=== PATIENT | female | born 1960 | race Caucasian/White ===

== ENCOUNTER → 2016-10-01 | Outpatient (CLI) | payer OTHER ==
--- NOTE | 2016-10-01 12:17 | EST ---
DATE OF SERVICE: 10/01/2016 AGE: 56Y SEX: F HT: 65" WT: 204 lbs. Protocol Pablo: X Other: Stress Stage: 1 Dur. of Exercise: 4:45 *Heart Rate Blood Pressure *Rest: 94 Rest: 149/88 * *Max. Achieved: 138 Maximum BP: 235/97 85% PMHR: 139 100% PMHR: 163 *METS: 6.6 INDICATIONS: Dyspnea. MEDICATIONS: - STRESS DATA: Pretesting physical examination showed heart a rate of 94, pressure is 149/88 mmHg. Baseline EKG showed sinus rhythm. The patient exercised on the treadmill according to Pablo protocol for a total of 4 minutes and 45 seconds and achieved 6.6 METs. Max heart rate was 138, which is about 84% of maximum predicted heart rate. Maximum pressure was 235/97 mmHg. Clinically, the patient did not have any symptoms of chest pain or discomfort, but she developed shortness of breathThe EKG showed about 1 mm horizontal and down-sloping changes. CONCLUSION: 1. Average exercise capacity. 2. Mild EKG changes in response to exercise.
== END ==
LOC: RADNMMAIN 10:23
PROVIDERS: ATTEND Family Medicine
DX: R06.00 Dyspnea, unspecified (principal)
CPT/HCPCS: 93017

== ENCOUNTER → 2016-12-09 | Outpatient (CLI) | payer OTHER ==
[2016-12-09 15:33] LABS: Appearance,Urine Cloudy (Clear); Bacteria,Urine Rare /hpf; Bilirubin,Urine Negative (Negative); Calcium Oxalate Crystals,Urine Moderate /hpf; Glucose,Urine (UA) Negative (Negative); Ketones,Urine Trace (Negative); Leukocyte Esterase,Urine Negative (Negative); Mucus,Urine Rare /hpf; Nitrite,Urine Positive (Negative); PH, Urine 5.5 (5.0-8.0); Particle Count 46432; Protein,Urine Negative (Negative); RBC,Urine 1 /hpf (0-5); Squamous Epithelial Cell,Urine <1 /hpf (0-4); UA Billing (MACRO vs. MICRO) MICRO; Urobilinogen,Urine <2.0 mg/dL (<2.0); WBC,Urine 2 /hpf (0-5)
--- NOTE | 2016-12-10 08:00 | MM ---
Reason for exam: screening (asymptomatic). Last mammogram was performed 1 year and 6 months ago. History: Patient is postmenopausal. Physical Findings: A clinical breast exam by your physician is recommended on an annual basis and results should be correlated with mammographic findings. MG 3D Screening Mammo W/Cad Bilateral CC and MLO view(s) were taken. Prior study comparison: June 08, 2015, bilateral MG 3d screening mammo w/cad. March 03, 2013, bilateral digital screening mammo w/CAD. The breast tissue is heterogeneously dense. This may lower the sensitivity of mammography. There is no discrete abnormality. No significant changes when compared with prior studies. ASSESSMENT: Negative, BI-RAD 1 RECOMMENDATION: Routine screening mammogram of both breasts in 1 year.
== END | disposition home or self-care (01) ==
LOC: RADMAMWWP 08:21
PROVIDERS: ATTEND Obstetrics & Gynecology
DX: Z12.31 Encounter for screening mammogram for malignant neoplasm of breast (principal); R30.0 Dysuria
CPT/HCPCS: 81001; 87086; 77063; G0202; 87077; 87186

== ENCOUNTER → 2016-12-15 | Outpatient (CLI) | payer OTHER ==
--- NOTE | 2016-12-16 07:45 | US ---
EXAMINATION TYPE: US pelvic complete DATE OF EXAM: 12/15/2016 COMPARISON: NONE CLINICAL HISTORY: R10.2 Pelvic pain. LLQ pain upon pelvic exam; history of diverticulosis TECHNIQUE: Transvaginal (TV) as patient had partially full bladder Date of LMP: approximately 2010 per patient EXAM MEASUREMENTS: Uterus: 6.4 x 3.8 x 3.2 cm Endometrial Stripe: 0.45 cm Right Ovary: 2.1 x 1.2 x 1.1 cm Left Ovary: not seen TV US or TA US cm 1. Uterus: Anteverted; small Nabothian cyst in CX = 0.3 x 0.4 x 0.3cm 2. Endometrium: thickness is wnl post menopausal 3. Right Ovary: wnl 4. Left Ovary: not identified TV or TA 5. Bilateral Adnexa: wnl 6. Posterior cul-de-sac: wnl IMPRESSION: 1. Cervical nabothian cysts. Otherwise unremarkable study.
== END | disposition home or self-care (01) ==
LOC: RADUSWWP 16:02
PROVIDERS: ATTEND Obstetrics & Gynecology
DX: N88.8 Other specified noninflammatory disorders of cervix uteri (principal); R10.2 Pelvic and perineal pain
CPT/HCPCS: 76830

== ENCOUNTER → 2018-09-07 | Outpatient (CLI) | payer OTHER ==
--- NOTE | 2018-09-07 13:56 | BD ---
EXAMINATION TYPE: Axial Bone Density DATE OF EXAM: 09/07/2018 COMPARISON: 2016 CLINICAL HISTORY: disorder of bone Height: 5'6 Weight: 196 FRAX RISK QUESTIONS: Secondary Osteoporosis: RISK FACTORS HISTORY OF: History of Wrist Fracture: rt When: age 23 Postmenopausal woman: y MEDICATIONS: Additional Medications: blood pressure,metforim, cholesterol Additional History: EXAM MEASUREMENTS: Bone mineral densitometry was performed using the [employer] mobile System. Bone mineral density as measured about the Lumbar spine is: ----- L1-L4(G/cm2): 1.073 T Score Values are as follows: ----- L2: -1.6 ----- L3: -0.8 ----- L4: -0.2 ----- L1-L4: -0.9 Bone mineral density has: Increased 4.7% since study of: 06/08/2015 Bone mineral density about the R hip (g/cm2): 0.814 Bone mineral density about the L hip (g/cm2): 0.808 T Score values are as follows: -----R Neck: -1.6 -----L Neck: -1.2 -----R Total: -1.0 -----L Total: -0.5 Bone mineral density has: Increased 3.4% since study of: 06/08/2015 IMPRESSION: Osteopenia (T Score between -2.5 and -1). There is slightly increased risk of fracture and the patient may be considered for treatment. Re-Screen 2-5 years. NOTE: T-SCORE=SD OF THE YOUNG ADULT MEAN.
--- NOTE | 2018-09-08 08:52 | MM ---
Reason for exam: screening (asymptomatic). Last mammogram was performed 1 year and 9 months ago. History: Patient is postmenopausal. Family history of breast cancer in aunt at age 65. Physical Findings: A clinical breast exam by your physician is recommended on an annual basis and results should be correlated with mammographic findings. MG 3D Screening Mammo W/Cad Bilateral CC and MLO view(s) were taken. Prior study comparison: December 09, 2016, bilateral MG 3d screening mammo w/cad. June 08, 2015, bilateral MG 3d screening mammo w/cad. The breast tissue is heterogeneously dense. This may lower the sensitivity of mammography. Finding: There are typically benign vascular calcifications in the left breast. No suspicious abnormality. No significant changes in finding since December 09, 2016 and June 08, 2015. ASSESSMENT: Benign, BI-RAD 2 RECOMMENDATION: Routine screening mammogram of both breasts in 1 year.
== END | disposition home or self-care (01) ==
LOC: RADMAMWWP 12:46
PROVIDERS: ATTEND Obstetrics & Gynecology
DX: Z12.31 Encounter for screening mammogram for malignant neoplasm of breast (principal); M85.80 Other specified disorders of bone density and structure, unspecified site; N95.1 Menopausal and female climacteric states
CPT/HCPCS: 77063; 77067; 77080

== ENCOUNTER → 2020-04-16 | Outpatient (CLI) | payer OTHER ==
--- NOTE | 2020-04-17 13:30 | MM ---
Reason for exam: screening (asymptomatic). Last mammogram was performed 1 year and 7 months ago. History: Patient is postmenopausal. Family history of breast cancer in aunt at age 65. Physical Findings: A clinical breast exam by your physician is recommended on an annual basis and results should be correlated with mammographic findings. MG 3D Screening Mammo W/Cad Bilateral CC and MLO view(s) were taken. Prior study comparison: September 07, 2018, bilateral MG 3d screening mammo w/cad. December 09, 2016, bilateral MG 3d screening mammo w/cad. There are scattered fibroglandular densities. There is no discrete abnormality. No significant changes when compared with prior studies. ASSESSMENT: Negative, BI-RAD 1 RECOMMENDATION: Routine screening mammogram of both breasts in 1 year.
== END | disposition home or self-care (01) ==
LOC: RADMAMWWP 10:43
PROVIDERS: ATTEND Obstetrics & Gynecology
DX: Z12.31 Encounter for screening mammogram for malignant neoplasm of breast (principal)
CPT/HCPCS: 77063; 77067

== ENCOUNTER → 2020-05-22 | Outpatient (CLI) | payer OTHER ==
[2020-05-22 09:11] LABS: HCT 42.6 % (34.0-46.0); HGB 14.6 gm/dL (11.4-16.0); MCH 30.2 pg (25.0-35.0); MCHC 34.2 g/dL (31.0-37.0); MCV 88.3 fL (80.0-100.0); Mean Platelet Volume 7.9; Platelet Count 366 k/uL (150-450); RBC 4.82 m/uL (3.80-5.40); RDW 12.4 % (11.5-15.5); WBC 7.9 k/uL (3.8-10.6)
[2020-05-22 09:15] LABS: Appearance,Urine Clear (Clear); Bacteria,Urine Occasional /hpf; Bilirubin,Urine Negative (Negative); Blood,Urine Negative (Negative); Color,Urine Light Yellow; Glucose,Urine (UA) Negative (Negative); Ketones,Urine Negative (Negative); Leukocyte Esterase,Urine Small (Negative); Nitrite,Urine Negative (Negative); Protein,Urine Negative (Negative); Specific Gravity,Urine 1.007 (1.001-1.035); Squamous Epithelial Cell,Urine <1 /hpf (0-4); Urobilinogen,Urine <2.0 mg/dL (<2.0); WBC,Urine 8 /hpf (0-5)
[2020-05-22 09:24] LABS: Albumin 4.9 g/dL (3.5-5.0); Calcium 10.5 mg/dL (8.4-10.2); INR 0.9 (<1.2); Partial Thromboplastin Time 22.2 sec (22.0-30.0); Potassium 4.4 mmol/L (3.5-5.1); Prothrombin Time 10.2 sec (9.0-12.0)
== END | disposition home or self-care (01) ==
LOC: LABPAT 08:38
PROVIDERS: ATTEND Orthopaedic Surgery
DX: Z01.818 Encounter for other preprocedural examination (principal); Z01.812 Encounter for preprocedural laboratory examination
CPT/HCPCS: 36415; 80053; 81001; 85027; 85610; 85730; 87070

== ENCOUNTER 2020-05-29 07:47 | Day surgery (SDC) | payer OTHER ==
[2020-05-24 08:25] VITALS: BMI 30.4
[~2020-05-29 07:47] MED LIST: ACETAMINOPHEN TAB 500 MG TAB PO PRN; DEXAMETHASONE SOD PHOSPHATE 4 MG/ML 1 ML VIAL IV ONE; GABAPENTIN 300 MG CAP PO PRN; HYDROmorphone 0.5 MG/0.5 ML SYRINGE IVP PRN; MELOXICAM 7.5 MG TAB PO PRN; ONDANSETRON 4 MG/2 ML VIAL IVP ONE; ROPIVACAINE 246.25 MG, EPINEPHrine 0.5 MG, KETOROLAC 30 MG, cloNIDine HCL/PF 80 MCG, WA... MISCELLANE PRN; TRANEXAMIC ACID 1,000 MG in SODIUM CHLORIDE 0.9% 100 ML IVPB PRN
[2020-05-29 08:36] LABS: Glucose,Whole Blood 170 mg/dL (75-99)
[2020-05-29] MEDS: LACTATED RINGERS 1,000 ML IV SCH (08:39)
[2020-05-29] MEDS ORDERED: LIDOCAINE 1% (10MG/ML) FOR IV START INTRADERMA ONE (08:40)
[2020-05-29] MEDS ORDERED: fentaNYL (PF) 50 MCG/ML 2 ML AMP ONE (08:49)
[2020-05-29] MEDS ORDERED: PHENYLEPHRINE 10 MG/ML VIAL ONE (08:49)
[2020-05-29] MEDS ORDERED: SODIUM CHLORIDE 0.9% IRRIG 1,000 ML BTL IRRIGATION ONE (08:49)
[2020-05-29] MEDS ORDERED: PROPOFOL 10 MG/ML 20 ML VIAL IV ONE (08:49)
[2020-05-29] MEDS ORDERED: TRANEXAMIC ACID 1,000 MG/10 ML VIAL ONE (08:49)
[2020-05-29] MEDS ORDERED: MIDAZOLAM 2 MG/2 ML VIAL ONE (08:49)
[2020-05-29] MEDS ORDERED: SODIUM CHLORIDE 0.9% 100 ML BAG ONE (08:49)
[2020-05-29] MEDS ORDERED: HEPARIN SODIUM,PORCINE 10,000 UNIT/ML 1 ML VIAL ONE (08:49)
[2020-05-29] MEDS ORDERED: ceFAZolin 3,000 MG in SODIUM CHLORIDE 0.9% IRRIGATIO 3,000 ML IRRIGATION ONE (08:53)
--- NOTE | 2020-05-29 10:07 | P.OP ---
Date of Procedure: 05/29/20 Preoperative Diagnosis: Severe osteoarthritis of the left hip Postoperative Diagnosis: Severe osteoarthritis of the left hip Procedure(s) Performed: Left total hip arthroplasty with a direct anterior approach Implants: [employer] Polarstem standard size 6 [employer] R3, 3 hole hemispherical acetabular shell, 48 mm [employer] Reflection 6.5 mm cancellus screw, 20 mm 2 [employer] R3, XLPE 20 acetabular liner [employer] Oxinium femoral head 32 m, -3 All components were press-fit. The articulation is Oxinium on polyethylene. Anesthesia: spinal Surgeon: Mikal Benton Boring Machine Operator #1: Jenise Olmedo Estimated Blood Loss (ml): 100 Pathology: other (Femoral head) Condition: stable Disposition: PACU Indications for Procedure: After failure of conservative treatment we discussed the surgical and nonsurgical treatment options at length. Patient wishes to proceed with a total hip arthroplasty with a direct anterior approach. Complications specific to this procedure were discussed at length, including but not limited to infection, leg length discrepancy, dislocation, nerve injury, and fracture. Covid-19 was also discussed at length with the patient, and they are aware of the current dionisio icies and procedures. The patient was given the option of delaying surgery, but they elect to proceed knowing these risks. Patient is aware of all these complications and informed consent was obtained Operative Findings: The operative findings are consistent with severe osteoarthritis of the left hip Description of Procedure: Patient was seen and evaluated in the preoperative area and the consent was reviewed. The operative site was marked with a skin marker. The patient was then brought to the operating room and given preoperative antibiotics intravenously. 1 g of Tranexamic acid was also given intravenously. A spinal anesthetic was administered by the anesthesia department. The patient was then placed on the Proctor table with the bony prominences well-padded. The hip area was then prepped with a ChloraPrep solution and draped in the usual sterile fashion. A universal timeout was then performed, which confirmed the patient's name, surgical site, ALLERGIES, and procedure being performed on the consent. Next the incision site was located at flexion crease of the left hip. The skin and subcutaneous tissues were sharply incised. Incision was carefully dissected down to the fascia overlying the tensor fascia naldo muscle. This fascia was then incised in line with the incision. Care was taken to stay laterally in order to avoid injuring the lateral femoral cutaneous nerve. Next, using blunt finger dissection, the tensor fascia naldo muscle was dissected off its investing fascia. The muscle was then carefully retracted laterally with a cobra retractor over the lateral neck of the femur. Next, the circumflex vessels were identified and cauterized using the AquaMantis device. The anterior hip capsule was then exposed. The capsule was then opened and an inverted T fashion. Cobra retractors were then placed intracapsularly. The retractors were maintained intracapsular throughout the procedure. The proximal femur was then visualized. A small amount of traction was placed on the leg. The femoral neck was then osteotomized appropriate level above the lesser trochanter. A small wedge of bone was then removed from the remaining femoral head. Next, using a corkscrew the femoral head was removed from the acetabulum. On gross visual inspection, the femoral head had complete loss of articular car tilage and multiple periarticular osteophytes. The femoral head was then measured. Attention was then turned to the acetabulum. The acetabulum was exposed and any remaining labrum was excised. Sequential reaming of the acetabulum was performed using fluoroscopic guidance until there was a good bed of bleeding cancellus bone. When the appropriate size was reached, a trial was then placed. The position and fit of the trial was checked with fluoroscopy. The trial was then removed. Then, using fluoroscopic guidance, the final implant was impacted at 20 of anteversion and 40 of abduction, and fully seated in the acetabulum. 2 screws were then placed in the acetabulum. Again fluoroscopy was used to check position of the screws. Next, the liner was then impacted, with a 20 elevated liner located in the anterior superior quadrant. Component locking was confirmed. Attention was then directed to the femur. With the aid of the Proctor table, the femur was externally rotated to approximately 130, extended, and adducted under the opposite leg. A side hook was then placed under the proximal femur, and the side hook elevator was used to elevate the proximal femur while releasing the capsule. Retractors were then placed. A capsular release was performed, as well as a release of the conjoined tendon, which afforded excellent visualization of the proximal femur. Next, a box osteotome was used to lateralize the proximal femur. A hand crocheter was then used to locate the femoral canal. Sequential broaching was then performed with appropriate size which afforded excellent fixation in the proximal femur. A trial was then placed with appropriate head and neck, and the hip was gently reduced with the aid of the Proctor table. Fluoroscopy was then used to check position of the components, as well as to ensure equal leg lengths. The hip was then gently dislocated and the trials were then removed. Final implants were then impacted and the hip was again reduced. Final fluoroscopic x-rays confirmed that the components were in anatomic position, as well as equal leg lengths. The hip was also taken through range of motion, and found to be stable. The hip was then copiously irrigated with antibiotic solution with pulsatile lavage. The hip was then irrigated with Irrisept solution. The soft tissues were then injected with a ropivacaine solution, which consisted of 246.25 mg of ropivacaine, 0.5 mg of epinephrine, 30 mg of Toradol, 80 g of clonidine, and 48.45 mL of sterile water, for a total of 100 mL of fluid injected. A second dose of 1 g of Tranexamic acid was also given intravenously. Any blood collected by Cell Saver was then returned to the patient at this time. The fascia was then closed with 2-0 strata fix suture. The subcutaneous tissue was closed with 3-0 Vicryl. The subcuticular tissue was closed with 3-0 strata fix suture. The skin was then closed with Exofin skin glue. After the glue and dried, and Optifoam silver impregnated dressing was applied. The patient was then transferred to the recovery room in stable condition. The investment sales assistant GEETA Martinez was required due to the complexity of surgery, and the need for skilled surgical aides teacher for positioning, draping, exposure, retraction, and closure of the wound.
[2020-05-29] MEDS ORDERED: LACTATED RINGERS 1,000 ML IV ONE (10:08)
--- NOTE | 2020-05-29 10:31 | FL ---
Fluoroscopy HISTORY: Left total hip arthroplasty 55 seconds fluoroscopy time supplied to the referring clinician. 2 intraoperative C-arm images docum ent the procedure. See dictated report from orthopedic surgery.
[2020-05-29] MEDS ORDERED: HYDROcodone/APAP 5-325MG 1 EACH TAB PO PRN (10:33)
[2020-05-29] MEDS ORDERED: MAGNESIUM HYDROXIDE 2,400 MG/10 ML CUP PO PRN (10:33)
[2020-05-29] MEDS ORDERED: NALOXONE 0.4 MG/ML 1 ML VIAL IV PRN (10:33)
[2020-05-29] MEDS ORDERED: HYDROmorphone 0.2 MG/1 ML SYRINGE IVP PRN (10:33)
[2020-05-29] MEDS ORDERED: HYDROmorphone 0.5 MG/0.5 ML SYRINGE IVP PRN (10:33)
[2020-05-29] MEDS ORDERED: hydrOXYzine pamoate 25 MG CAP PO PRN (10:33)
[2020-05-29] MEDS ORDERED: HYDROmorphone 1 MG/ML 1 ML SYRINGE IVP PRN (10:33)
[2020-05-29] MEDS ORDERED: ONDANSETRON 4 MG/2 ML VIAL IVP PRN (10:33)
--- NOTE | 2020-05-29 10:33 | XR ---
Limited left hip HISTORY: Status post left hip arthroplasty 2 intraoperative C-arm images document the procedure.
[2020-05-29] MEDS ORDERED: diphenhydrAMINE 50 MG/ML 1 ML VIAL IVP ONE (10:59)
--- NOTE | 2020-05-29 11:01 | XR ---
Limited left hip HISTORY: Status post left hip arthroplasty Single frontal view of the left hip Patient is status post left hip arthroplasty. There is anatomic alignment. There is lucency in the so ft tissues. IMPRESSION: Orthopedic follow-up.
[2020-05-29 11:30] LABS: Glucose,Whole Blood 146 mg/dL (75-99)
[2020-05-29] MEDS: SODIUM CHLORIDE 0.9% 1,000 ML IV SCH (13:03)
--- NOTE | 2020-05-29 14:46 | P.CONS ---
History of Present Illness - Reason for Consult Management of diabetes mellitus - History of Present Illness Patient is a very pleasant 59-year-old female admitted for left hip arthroplasty and underwent surgery patient denied any pain at this time patient did not pass gas. Patient did not move her bowel yet patient doesn't have any drains or catheters at this time. Patient doesn't have full catheter. Patient denied any fever chills cough dysuria. Review of Systems REVIEW OF SYSTEMS: CONSTITUTIONAL: No fever, no malaise, no fatigue. HEENT: No recent visual problems or hearing problems. Denied any sore throat. CARDIOVASCULAR: No chest pain, orthopnea, PND, no palpitations, no syncope. PULMONARY: No shortness of breath, no cough, no hemoptysis. GASTROINTESTINAL: No diarrhea, no nausea, no vomiting, no abdominal pain. NEUROLOGICAL: No headaches, no weakness, no numbness. HEMATOLOGICAL: Denies any bleeding or petechiae. GENITOURINARY: Denies any burning micturition, frequency, or urgency. MUSCULOSKELETAL/RHEUMATOLOGICAL: Denies any joint pain, swelling, or any muscle pain. ENDOCRINE: Denies any polyuria or polydipsia. The rest of the 14-point review of systems is negative. Past Medical History Past Medical History: Diabetes Mellitus, GERD/Reflux, Hyperlipidemia, Hypertension, Osteoarthritis (OA) Additional Past Medical History / Comment(s): FATTY LIVER. VARICOSE VEINS. DIVERTICULOSIS, History of Any Multi-Drug Resistant Organisms: None Reported Past Surgical History: Cholecystectomy, Hernia Repair Past Anesthesia/Blood Transfusion Reactions: Motion Sickness Additional Past Anesthesia/Blood Transfusion Reaction / Comm: YEARS AGO, PROB AWAKENING AFTER COMPLICATION W/ CHILDBIRTH. Past Psychological History: No Psychological Hx Reported Smoking Status: Never smoker Past Alcohol Use History: Rare Past Drug Use History: None Reported - Past Family History Mother Family Medical History: Cancer Additional Family Medical History / Comment(s): mult myeloma Medications and Allergies Home Medications Medication Instructions Recorded Confirmed Type Multivitamins, Thera [Theragran] 1 tab PO DAILY 05/08/15 05/29/20 History Naproxen Sodium [Aleve] 440 mg PO DAILY 05/08/15 05/29/20 History metFORMIN HCL 1,000 mg PO BID 05/08/15 05/29/20 History Aspirin 81 mg PO DAILY 11/22/15 05/29/20 History Acetaminophen [Tylenol Extra 1,000 mg PO DIRECTED PRN 05/24/20 05/29/20 History Strength] Acetaminophen/Diphenhydramine 1 tab PO HS 05/24/20 05/29/20 History [Tylenol PM 500-25mg] Calcium Carbonate/Vitamin D3 1 each PO DAILY 05/24/20 05/29/20 History [Caltrate 600 Plus D3 20 Mcg (800 Iu)] Carvedilol [Coreg] 12.5 mg PO BID 05/24/20 05/29/20 History Cholecalciferol (Vitamin D3) 125 mcg PO DAILY 05/24/20 05/29/20 History [Vitamin D3 (5000 Iu)] Glucosamine/Chondr Junior A Sod [Osteo 1 each PO DAILY 05/24/20 05/29/20 History Bi-Flex Caplet] L.acidoph,Paracasei, B.lactis 1 each PO DAILY 05/24/20 05/29/20 History [Probiotic] [place]-3 Fatty Acids/Fish Oil [Fish 1 each PO DAILY 05/24/20 05/29/20 History Oil 1,000 mg Softgel] Omeprazole 40 mg PO DAILY 05/24/20 05/29/20 History Simvastatin [Zocor] 10 mg PO HS 05/24/20 05/29/20 History Valsartan/Hydrochlorothiazide 1 each PO QAM 05/24/20 05/29/20 History [Valsartan-Hctz 160-12.5 mg Tab] Allergies Allergy/AdvReac Type Severity Reaction Status Date / Time No Known Allergies Allergy Verified 05/29/20 08:17 Physical Exam Vitals: Vital Signs Temp Pulse Resp BP Pulse Ox 05/29/20 12:30 97.7 F 78 16 127/76 94 L 05/29/20 12:00 67 14 99/65 100 05/29/20 11:45 69 14 100/63 98 05/29/20 11:30 74 14 100/64 97 05/29/20 11:27 71 18 107/64 98 05/29/20 11:15 71 14 85/57 96 05/29/20 11:00 69 16 97/62 96 05/29/20 10:45 67 14 100/59 99 05/29/20 10:30 65 14 93/55 95 05/29/20 10:23 98.3 F 72 20 86/68 97 05/29/20 08:22 97.2 F L 86 16 132/75 95 Intake and Output 05/28/20 05/29/20 05/29/20 22:59 06:59 14:59 Intake Total 1387 Output Total 100 Balance 1287 Intake: IV 1151 Oral 236 Output: Estimated Blood Loss 100 Other: Weight 84 kg PHYSICAL EXAMINATION: GENERAL: The patient is alert and oriented x3, not in any acute distress. Well developed, well nourished. HEENT: Pupils are round and equally reacting to light. EOMI. No scleral icterus. No conjunctival pallor. Normocephalic, atraumatic. No pharyngeal erythema. No thyromegaly. CARDIOVASCULAR: S1 and S2 present. No murmurs, rubs, or gallops. PULMONARY: Chest is clear to auscultation, no wheezing or crackles. ABDOMEN: Soft, nontender, nondistended, normoactive bowel sounds. No palpable organomegaly. MUSCULOSKELETAL: No joint swelling or deformity. EXTREMITIES: No cyanosis, clubbing, or pedal edema. NEUROLOGICAL: Gross neurological examination did not reveal any focal deficits. SKIN: No rashes. Results Labs: Abnormal Lab Results - Last 24 Hours (Table) 05/29/20 05/29/20 Range/Units 08:34 11:28 POC Glucose (mg/dL) 170 H 146 H (75-99) mg/dL Assessment and Plan Plan: -Type 2 diabetes mellitus: Patient will be resumed on metformin and will be started on sliding scale insulin -Hypertension patient on beta jan which will be resumed but patient will be monitored for any perioperative hypotension which will be treated with IV fluids. -Left hip arthroplasty: Patient is on DVT prophylaxis with 325 mg twice a day of aspirin -Hyperlipidemia patient was started on a statin -Gastroesophageal reflux disease: On Prilosec which was resumed
[2020-05-29 16:51] LABS: Glucose,Whole Blood 237 mg/dL (75-99)
[2020-05-29] MEDS: carvediloL 12.5 MG TAB PO SCH (17:21)
[2020-05-29] MEDS: INSULIN ASPART (NovoLOG) 100 UNIT/ML VIAL SQ SCH ×2 (17:22→19:51)
[2020-05-29 19:46] LABS: Glucose,Whole Blood 288 mg/dL (75-99)
[2020-05-29] MEDS: HYDROcodone/APAP 5-325MG 1 EACH TAB PO PRN (19:50)
[2020-05-29] MEDS: ASPIRIN 325 MG TAB PO SCH (19:50)
[2020-05-29] MEDS: metFORMIN 500 MG TAB PO SCH (19:50)
[2020-05-29] MEDS ORDERED: ATORVASTATIN 10 MG TAB PO SCH (21:00)
[2020-05-29] MEDS ORDERED: SENNOSIDES-DOCUSATE SODIUM 1 EACH TAB PO SCH (21:00)
[2020-05-30] MEDS: HYDROcodone/APAP 5-325MG 1 EACH TAB PO PRN ×2 (02:13→08:06)
[2020-05-30] MEDS: SODIUM CHLORIDE 0.9% 1,000 ML IV SCH (02:37)
[2020-05-30] MEDS: LACTATED RINGERS 1,000 ML IV SCH (05:22)
[2020-05-30 07:10] LABS: Glucose,Whole Blood 109 mg/dL (75-99)
[2020-05-30] MEDS: INSULIN ASPART (NovoLOG) 100 UNIT/ML VIAL SQ SCH ×2 (07:48→12:37)
[2020-05-30] MEDS: ASPIRIN 325 MG TAB PO SCH (08:06)
[2020-05-30] MEDS: carvediloL 12.5 MG TAB PO SCH (08:06)
[2020-05-30] MEDS: metFORMIN 500 MG TAB PO SCH (08:06)
[2020-05-30 08:16] VITALS: TEMP 98.4
[2020-05-30] MEDS ORDERED: HYDROcodone/APAP 7.5-325MG 1 EACH TAB PO PRN ×2 (08:23)
--- NOTE | 2020-05-30 08:27 | P.DS ---
Providers Expected date of discharge: 05/30/20 Attending physician: Mikal Benton Consults: 05/29/20 10:33 Consult Physician Routine Consulting Provider: Melody Burroughs Consult Reason/Comments: medical management Do you want consulting provider notified?: Yes Primary care physician: Odilia Cardona - Discharge Diagnosis(es) (1) Osteoarthritis of left hip Current Visit: Yes Status: Acute (2) S/P total hip arthroplasty Current Visit: Yes Status: Acute Hospital Course: This is a 59-year-old female with known history of degenerative arthritis of the left hip. The patient presented for evaluation as an outpatient. After discussion and consideration patient elects to proceed with total hip arthroplasty. The patient is seen preoperatively by Dr. Benton and medically cleared for surgery by their primary care physician. Patient is admitted to [facility] on 05/29/2020 for total hip arthroplasty. The procedure is performed without complication or sequelae. The patient is doing well postoperatively. Labs and vital signs are stable on day of discharge. On day of discharge patient's hip incision is healing well. There is minimal erythema. There is no drainage noted at this time. There is minimal soft tiss ue swelling to the hip and thigh. Patient has full foot and ankle motion without difficulty or pain. Calf is soft and nontender to palpation. Neurovascular status to the left lower extremity is intact. Patient is discharged home in good condition. Opioid start talking form is reviewed and signed. Please see med rec for accurate list of home medications. Plan - Discharge Summary Discharge Rx Participant: Yes New Discharge Prescriptions: New Aspirin 325 mg PO BID #60 tab HYDROcodone/APAP 7.5-325MG [[place] 7.5-325] 1 - 2 tab PO Q6H PRN #32 tab PRN Reason: Pain Sennosides [Senokot] 2 tab PO DAILY PRN #60 tablet PRN Reason: Constipation No Action metFORMIN HCL 1,000 mg PO BID Naproxen Sodium [Aleve] 440 mg PO DAILY Multivitamins, Thera [Theragran] 1 tab PO DAILY Aspirin 81 mg PO DAILY Valsartan/Hydrochlorothiazide [Valsartan-Hctz 160-12.5 mg Tab] 1 each PO QAM Cholecalciferol (Vitamin D3) [Vitamin D3 (5000 Iu)] 125 mcg PO DAILY Carvedilol [Coreg] 12.5 mg PO BID Simvastatin [Zocor] 10 mg PO HS Calcium Carbonate/Vitamin D3 [Caltrate 600 Plus D3 20 Mcg (800 Iu)] 1 each PO DAILY [place]-3 Fatty Acids/Fish Oil [Fish Oil 1,000 mg Softgel] 1 each PO DAILY Glucosamine/Chondr Junior A Sod [Osteo Bi-Flex Caplet] 1 each PO DAILY L.acidoph,Paracasei, B.lactis [Probiotic] 1 each PO DAILY Omeprazole 40 mg PO DAILY Acetaminophen/Diphenhydramine [Tylenol PM 500-25mg] 1 tab PO HS Acetaminophen [Tylenol Extra Strength] 1,000 mg PO DIRECTED PRN PRN Reason: Pain Discharge Medication List Multivitamins, Thera [Theragran] 1 tab PO DAILY 05/08/15 [History] Naproxen Sodium [Aleve] 440 mg PO DAILY 05/08/15 [History] metFORMIN HCL 1,000 mg PO BID 05/08/15 [History] Aspirin 81 mg PO DAILY 11/22/15 [History] Acetaminophen [Tylenol Extra Strength] 1,000 mg PO DIRECTED PRN 05/24/20 [History] Acetaminophen/Diphenhydramine [Tylenol PM 500-25mg] 1 tab PO HS 05/24/20 [History] Calcium Carbonate/Vitamin D3 [Caltrate 600 Plus D3 20 Mcg (800 Iu)] 1 each PO DAILY 05/24/20 [History] Carvedilol [Coreg] 12.5 mg PO BID 05/24/20 [History] Cholecalciferol (Vitamin D3) [Vitamin D3 (5000 Iu)] 125 mcg PO DAILY 05/24/20 [History] Glucosamine/Chondr Junior A Sod [Osteo Bi-Flex Caplet] 1 each PO DAILY 05/24/20 [History] L.acidoph,Paracasei, B.lactis [Probiotic] 1 each PO DAILY 05/24/20 [History] [place]-3 Fatty Acids/Fish Oil [Fish Oil 1,000 mg Softgel] 1 each PO DAILY 05/24/20 [History] Omeprazole 40 mg PO DAILY 05/24/20 [History] Simvastatin [Zocor] 10 mg PO HS 05/24/20 [History] Valsartan/Hydrochlorothiazide [Valsartan-Hctz 160-12.5 mg Tab] 1 each PO QAM 05/24/20 [History] Aspirin 325 mg PO BID #60 tab 05/30/20 [Rx] HYDROcodone/APAP 7.5-325MG [[place] 7.5-325] 1 - 2 tab PO Q6H PRN #32 tab 05/30/20 [Rx] Sennosides [Senokot] 2 tab PO DAILY PRN #60 tablet 05/30/20 [Rx] Follow up Appointment(s)/Referral(s): Mikal Benton DO [Doctor of Osteopathic Medicine] - 2 Weeks Activity/Diet/Wound Care/Special Instructions: Weightbearing as tolerated with walker. Leave dressing intact. Dressing may be removed by home care nurse or by patient in 10 days. May shower with dressing on. Please take aspirin 325mg twice daily for 30 days to prevent blood clots. Recommend use of compression stockings daily until follow up to help prevent swelling and blood clots. May remove at night before sleeping. Please follow-up with [facility] in 2 weeks and call with any questions or concerns, . Discharge Disposition: HOME WITH HOME HEALTH SERVICES
[2020-05-30] MEDS ORDERED: PANTOPRAZOLE 40 MG TABLET PO SCH (09:00)
[2020-05-30] MEDS ORDERED: MELOXICAM 7.5 MG TAB PO SCH (09:00)
[2020-05-30 09:10] LABS: Basophils # (A) 0.02 X 10*3/uL (0.00-0.10); Basophils % (A) 0.1 %; Eosinophils # (A) 0.03 X 10*3/uL (0.04-0.35); Eosinophils % (A) 0.2 %; HCT 35.8 % (37.2-46.3); Lymphocytes # (A) 1.85 X 10*3/uL (0.90-5.00); Lymphocytes % (A) 12.3 %; MCH 30.1 pg (27.0-32.0); MCHC 33.5 g/dL (32.0-37.0); MCV 89.7 fL (80.0-97.0); Mean Platelet Volume 11.4 fL (9.5-12.2); Monocytes # (A) 1.44 X 10*3/uL (0.20-1.00); Monocytes % (A) 9.5 %; Neutrophils # (A) 11.68 X 10*3/uL (1.80-7.70); Neutrophils % (A) 77.5 %; Platelet Count 317 X 10*3/uL (140-440); RBC 3.99 X 10*6/uL (4.10-5.20); RDW 11.9 % (11.5-14.5); WBC 15.08 X 10*3/uL (4.50-10.00)
[2020-05-30 11:54] LABS: Glucose,Whole Blood 111 mg/dL (75-99)
[2020-05-30 11:55] VITALS: BP 118/71; PULSE 62; RESP 18
--- NOTE | 2020-05-30 15:00 | P.PN ---
Subjective Progress Note Date: 05/30/20 - Reason for Consult Management of diabetes mellitus - History of Present Illness Patient is a very pleasant 59-year-old female admitted for left hip arthroplasty and underwent surgery patient denied any pain at this time patient did not pass gas. Patient did not move her bowel yet patient doesn't have any drains or catheters at this time. Patient doesn't have Britton catheter. Patient denied any fever chills cough dysuria. 05/30/2020 Patient was Seen and evaluated in follow-up with no acute overnight issues. Patient is status post left hip arthroplasty. On exam patient is up and walking to the bathroom with a walker and will be continuing with home care in the outpatient setting. Case management working on discharge planning. Patient to resume home medications upon discharge. Patient to continue monitoring blood sugar in keeping a diary for primary care follow-up. Hemoglobin A1c is currently pending and instructed the patient to review the [facility] portal and follow-up with primary care provider on these lab values. Patient had CBC done and elevated white blood count is noted at 15.08 which is likely reactive due to recent surgery as patient is afebrile, denies any shortness of breath or cough, denies any dysuria or retention, and states her presurgical screening she was told the white blood count was between 11 and 12. Patient instructed to follow- up with primary care provider and repeat labs in one week to monitor. Patient is passing gas and states she had a bowel movement this morning. Review of systems: Constitutional: No reports of fatigue, fever, or chills Cardiovascular: No reports of chest pain or palpitations Respiratory: No reports of shortness of breath or cough GI: No reports of nausea, vomiting, or diarrhea : No reports of dysuria or retention Neurovascular: No reports of weakness or numbness All medications have been reviewed Objective - Vital Signs Vital signs: Vital Signs Temp 98.4 F 05/30/20 06:57 Pulse 68 05/30/20 06:57 Resp 17 05/30/20 06:57 BP 124/77 05/30/20 06:57 Pulse Ox 94 L 05/30/20 06:57 Intake & Output 05/29/20 05/30/20 05/30/20 18:59 06:59 18:59 Intake Total 1807 Output Total 700 Balance 1107 Weight 84 kg Intake: IV 1571 Sodium Chloride 0.9% 1, 420 000 ml @ 70 mls/hr IV . [id number] [facility] Rx#:[id number] Oral 236 Output: Urine 600 Estimated Blood Loss 100 Other: Voiding Method Toilet # Voids 2 - Exam GENERAL: The patient is alert and oriented x3, not in any acute distress. Well developed, well nourished. Currently sitting up in the chair after walking with a walker HEENT: Pupils are round and equally reacting to light. EOMI. No scleral icterus. No conjunctival pallor. Normocephalic, atraumatic. No pharyngeal erythema. No thyromegaly. CARDIOVASCULAR: S1 and S2 present. No murmurs, rubs, or gallops. PULMONARY: Chest is clear to auscultation, no wheezing or crackles. ABDOMEN: Soft, nontender, nondistended, normoactive bowel sounds. No palpable organomegaly. MUSCULOSKELETAL: No joint swelling or deformity. EXTREMITIES: No cyanosis, clubbing, or pedal edema. Surgical hip recent surgery site dressing in the left groin is dry and intact with some slight bruising noted along with swelling has improved. NEUROLOGICAL: Gross neurological examination did not reveal any focal deficits. SKIN: No rashes. - Labs CBC & Chem 7: 05/30/20 06:16 Labs: Abnormal Lab Results - Last 24 Hours (Table) 05/29/20 05/29/20 05/29/20 Range/Units 11:28 16:48 19:45 WBC (4.50-10.00) X 10*3/uL RBC (4.10-5.20) X 10*6/uL Hct (37.2-46.3) % Immature Gran # (0.00-0.04) X 10*3/uL Neutrophils # (1.80-7.70) X 10*3/uL Monocytes # (0.20-1.00) X 10*3/uL Eosinophils # (0.04-0.35) X 10*3/uL POC Glucose (mg/dL) 146 H 237 H 288 H (75-99) mg/dL 05/30/20 05/30/20 Range/Units 06:16 06:59 WBC 15.08 H (4.50-10.00) X 10*3/uL RBC 3.99 L (4.10-5.20) X 10*6/uL Hct 35.8 L (37.2-46.3) % Immature Gran # 0.06 H (0.00-0.04) X 10*3/uL Neutrophils # 11.68 H (1.80-7.70) X 10*3/uL Monocytes # 1.44 H (0.20-1.00) X 10*3/uL Eosinophils # 0.03 L (0.04-0.35) X 10*3/uL POC Glucose (mg/dL) 109 H (75-99) mg/dL Assessment and Plan Assessment: -Type 2 diabetes mellitus: Patient will be resumed on metformin and will resume home medication continue with Accu-Cheks -Mild leukocytosis most likely reactive with no signs of infection, patient is afebrile, no chest pain or shortness of breath, no cough, denies any dysuria or frequency with urination -Hypertension patient on beta jan which will be resumed, patient instructed to resume home medications tomorrow -Left hip arthroplasty: Patient is on DVT prophylaxis with 325 mg twice a day of aspirin -Hyperlipidemia patient was started on a statin -Gastroesophageal reflux disease: On Prilosec which was resumed Plan: Continue with current medications and resume home medications. Continue to mon itor blood sugars before meals and at bedtime. Patient had a slightly elevated white blood count which is likely reactive status post surgery and instructed the patient to follow-up with primary care provider this week for repeat labs to monitor white blood count. Patient is afebrile with no chest pain no shortness of breath no cough noted. Patient denies any urinary retention, dysuria, or frequency with urination. Will continue to follow along with orthopedic surgery during hospitalization. Case management following and making arrangements for home care in the outpatient setting. She is scheduled to be discharged today.
[2020-05-30 17:05] LABS: Hemoglobin A1C 6.2 % (4.0-6.0)
== END 2020-05-30 13:28 | disposition home health service (06) ==
LOC: OR 07:47 → 4SSUR 12:14 → OR 05-30 13:18
PROVIDERS: ATTEND Orthopaedic Surgery
DX: M16.12 Unilateral primary osteoarthritis, left hip (principal); M25.752 Osteophyte, left hip; D72.829 Elevated white blood cell count, unspecified; I10 Essential (primary) hypertension; E11.9 Type 2 diabetes mellitus without complications; K21.9 Gastro-esophageal reflux disease without esophagitis; E78.5 Hyperlipidemia, unspecified; K76.0 Fatty (change of) liver, not elsewhere classified; I83.90 Asymptomatic varicose veins of unspecified lower extremity; K57.90 Diverticulosis of intestine, part unspecified, without perforation or abscess without bleeding; Z79.1 Long term (current) use of non-steroidal anti-inflammatories (NSAID); Z79.899 Other long term (current) drug therapy; Z79.82 Long term (current) use of aspirin; Z79.84 Long term (current) use of oral hypoglycemic drugs; Z97.3 Presence of spectacles and contact lenses; Z90.49 Acquired absence of other specified parts of digestive tract; Z98.890 Other specified postprocedural states; Z87.898 Personal history of other specified conditions; Z91.89 Other specified personal risk factors, not elsewhere classified; Z82.49 Family history of ischemic heart disease and other diseases of the circulatory system; Z80.7 Family history of other malignant neoplasms of lymphoid, hematopoietic and related tissues
CPT/HCPCS: 27130; 97116; 97110; 97161; 97535; 97165; 86891; 85025; 88300; 83036; 73501; C1776; J0171; J1200; J1100; J0690 ×3; J2405; J1885; J2795; J0735; J1170; 86850; 86900; 86901

== ENCOUNTER → 2021-04-29 | Outpatient (CLI) | payer OTHER, BC ==
--- NOTE | 2021-04-29 09:50 | MM ---
Reason for exam: screening (asymptomatic). Last mammogram was performed 1 year ago. History: Patient is postmenopausal. Family history of breast cancer in aunt at age 65. Physical Findings: A clinical breast exam by your physician is recommended on an annual basis and results should be correlated with mammographic findings. MG 3D Screening Mammo W/Cad Bilateral CC and MLO view(s) were taken. Prior study comparison: April 16, 2020, bilateral MG 3d screening mammo w/cad. September 07, 2018, bilateral MG 3d screening mammo w/cad. The breast tissue is heterogeneously dense. This may lower the sensitivity of mammography. There is no discrete abnormality. ASSESSMENT: Benign, BI-RAD 2 RECOMMENDATION: Routine screening mammogram of both breasts in 1 year.
== END | disposition home or self-care (01) ==
LOC: RADMAMWWP 07:36
PROVIDERS: ATTEND Obstetrics & Gynecology
DX: Z12.31 Encounter for screening mammogram for malignant neoplasm of breast (principal); Z80.3 Family history of malignant neoplasm of breast; Z78.0 Asymptomatic menopausal state
CPT/HCPCS: 77063; 77067

== ENCOUNTER → 2023-06-08 | Outpatient (CLI) | payer BC ==
--- NOTE | 2023-06-09 09:14 | MM ---
Reason for Exam: Screening (asymptomatic). Last screening mammogram was performed 12 month(s) ago. Patient History: Menarche at age 12. First Full-Term at age 22. Postmenopausal. Maternal aunt had breast cancer, age 65. Risk Values: Tory 5 year model risk: 1.4%. NCI Lifetime model risk: 6.0%. Prior Study Comparison: 04/16/2020 Bilateral Screening Mammogram, [facility]. 04/29/2021 Bilateral Screening Mammogram, [facility]. 06/02/2022 Bilateral MG 3D screening mammo w/cad, [facility]. Tissue Density: There are scattered fibroglandular densities. Findings: Analyzed By CAD. There is no suspicious group of microcalcifications or new suspicious mass. Benign-appearing calcifications bilaterally. Overall Assessment: Benign, BI-RAD 2 Management: Screening Mammogram of both breasts in [address] [facility] will attempt to contact patient to return for supplemental views and ultrasound if indicated. Patient should continue monthly self-breast exams. A clinical breast exam by your physician is recommended on an annual basis. This exam should not preclude additional follow-up of suspicious palpable abnormalities. Note on Tory scores and lifetime risk: 1. A Tory score greater than 3% is considered moderate risk. If this is the case, consider specialist referral to assess eligibility for a risk reducing agent. 2. If overall lifetime risk for the development of breast cancer is 20% or higher, the patient may qualify for future screening with alternating mammogram and breast MRI. Electronically signed and approved by: Axel Werner DO
== END | disposition home or self-care (01) ==
LOC: RADMAMWWP 08:31
PROVIDERS: ATTEND Obstetrics & Gynecology
DX: Z12.31 Encounter for screening mammogram for malignant neoplasm of breast (principal); Z78.0 Asymptomatic menopausal state; Z80.3 Family history of malignant neoplasm of breast
CPT/HCPCS: 77063; 77067

== ENCOUNTER → 2024-08-01 | Outpatient (CLI) | payer BC ==
--- NOTE | 2024-08-01 13:44 | MM ---
Reason for Exam: Screening (asymptomatic). Last mammogram was performed 1 year(s) and 2 month(s) ago. Patient History: Menarche at age 12. First Full-Term at age 22. Postmenopausal. Maternal aunt had breast cancer, age 65. Risk Values: Tory 5 year model risk: 1.4%. NCI Lifetime model risk: 5.8%. Prior Study Comparison: 04/29/2021 Bilateral Screening Mammogram, [facility]. 06/02/2022 Bilateral MG 3D screening mammo w/cad, [facility]. 06/08/2023 Bilateral MG 3D screening mammo w/cad, [facility]. Tissue Density: The breasts are heterogeneously dense, which may obscure small masses. Findings: Analyzed By CAD. There is no suspicious group of microcalcifications or new suspicious mass in either breast. Overall Assessment: Negative, BI-RAD 1 Management: Screening Mammogram of both breasts in 1 year. Patient should continue monthly self-breast exams. A clinical breast exam by your physician is recommended on an annual basis. This exam should not preclude additional follow-up of suspicious palpable abnormalities. Note on Tory scores and lifetime risk: 1. A Tory score greater than 3% is considered moderate risk. If this is the case, consider specialist referral to assess eligibility for a risk reducing agent. 2. If overall lifetime risk for the development of breast cancer is 20% or higher, the patient may qualify for future screening with alternating mammogram and breast MRI. [facility], , 08/01/2024 1:41 PM. Electronically signed and approved by: Ligia De Los Santos M.D. Radiologist
== END | disposition home or self-care (01) ==
LOC: RADBDWWP 11:21
PROVIDERS: ATTEND Family Medicine
DX: Z12.31 Encounter for screening mammogram for malignant neoplasm of breast (principal); R92.333 Mammographic heterogeneous density, bilateral breasts; Z78.0 Asymptomatic menopausal state; Z80.3 Family history of malignant neoplasm of breast
CPT/HCPCS: 77063; 77067